=== PATIENT | male | born 1980 | race Caucasian/White ===

== ENCOUNTER 2021-02-04 14:04 | Emergency (ER) | payer OTHER, SELFPAY ==
[2021-02-04 14:10] VITALS: BP 124/76; BP 126/72; PULSE 84; PULSE 95; RESP 12; TEMP 36.8; O2SAT 95; O2SAT 98; BMI 25.0
--- NOTE | 2021-02-04 14:15 | PC.NURSE ---
Pt changed over into hospital attire w/ security present, belongings placed in decon. Pt cooperative with care. Pt very drowsy but arousable to verbal stimuli
--- NOTE | 2021-02-04 15:00 | ED_ITS ---
HPI - Overdose General Chief Complaint: Overdose Stated Complaint: HEROIN OD Time Seen by Provider: 02/04/21 14:17 Source: patient and EMS Mode of arrival: EMS Limitations: no limitations History of Present Illness HPI Narrative: Patient comes to emergency room after being found unresponsive in a car on the side of the road. No Narcan was given, patient admits to snorting 2 bags of heroin. Patient denies chest pain, no shortness of breath. Complaining of somnolence. Patient denies homicidal ideation Related Data Allergies Allergy/AdvReac Type Severity Reaction Status Date / Time cephalexin [From Keflex] Allergy Rash Verified 02/04/21 14:15 Review of Systems Review of Systems: Constitutional : No Weight loss, No Fever, No Chills, No Night Sweats, No Fatigue, No Malaise ENT/Mouth : No Hearing loss, No Ear Pain, No Nasal Congestion, No Sinus Pain, No Hoarseness, No sore throat, No Rhinorrhea, No Swallowing Difficulty Eyes: No Eye Pain, No Swelling, No Redness, No Foreign Body, No Discharge, No Vision Changes Cardiovascular : No Chest Pain, No SOB, No Dyspnea on Exertion, No Orthopnea, No Edema, No Palpitations Respiratory : No Cough, No Sputum, No Wheezing, No Smoke Exposure, No Dyspnea Gastrointestinal : No Nausea, No Vomiting, No Diarrhea, No Constipation, No abdominal Pain, No Hematochezia, No Melena Genitourinary : no irregular bleeding, No Dysuria, No Urinary Frequency, No Hematuria, No Urinary Incontinence, No Urgency, No Flank Pain, No Urinary Flow Changes, No Hesitancy Musculoskeletal : No joint pain, No Myalgias, No Joint Swelling Skin : No Skin Lesions, No rash Neuro : No Weakness, No Numbness, No Paresthesias, No Loss of Consciousness, No Dizziness, No Headache Psych : No Anxiety/Panic, No Depression, No SI/HI/AH/VH, No Social Issues, Heme/Lymph: No Bruising, No Bleeding,No Lymphadenopathy Endocrine : No Polyuria, No Polydipsia, No Temperature Intolerance PMF Past Medical History Medical History Opioid abuse Substance abuse Social History Social History Advance Directives: Yes Advance Directives Information Provided: No Advance Directives on File: No Physical Exam Vital Signs: Vital Signs: Last Vital Signs Temp 98.2 F 02/04/21 14:10 Pulse 84 02/04/21 14:10 Resp 12 02/04/21 14:10 BP 124/76 02/04/21 14:10 Pulse Ox 98 02/04/21 14:10 Body Mass Index 25.0 Appearance: Alert. Oriented X3. No acute distress. Somnolent, calm, cooperative Eyes: Pupils equal, round and reactive to light. ENT: Pharynx normal. Neck: Normal inspection. Neck supple. No lymph nodes noted. No crepitus CVS: Normal heart rate and rhythm. Pulses normal. Normal S1 and S2 Respiratory: No respiratory distress. Breath sounds normal. No Wheezing. No rales Abdomen: Soft and nontender. No rigidity. No distention. good BS x4 Skin: Skin warm and dry. Normal skin color. Normal skin turgor. Extremities: No lower extremity edema. No lower extremity edema. No Lacerations. No Rash Neuro: Oriented X 3. No motor deficit. No sensory deficit. Moving all extermities. No slurred speech. Course Course Course Narrative: Patient remains calm, cooperative, easily arousable food saturation 97-98% on room air, patient is very somnolent. When patient is more awake, he may be discharged. Patient will be provided with home Narcan. Sign- out given to Dr. Hradin Discharge Plan Discharge Clinical Impression: Substance abuse Drug overdose Qualifiers: Encounter type: initial encounter Injury intent: accidental or unintentional Qualified Code(s): T50.901A - Poisoning by unspecified drugs, medicaments and biological substances, accidental (unintentional), initial encounter Patient Disposition: Home, Self-Care Instructions: Polysubstance Abuse (ED) Additional Instructions: Please stop using drugs. Please follow-up with your primary care physician tomorrow. If you have any worsening or new symptoms, please return to the emergency room or call 911
[2021-02-04 16:32] VITALS: BP 119/67; PULSE 58; RESP 9; TEMP 36.5; O2SAT 95
[2021-02-04] MEDS: Naloxone HCl Nasal TAKE HOME 4 MG SPRAY NOSTRILALT (17:51)
[2021-02-04 18:00] VITALS: BP 136/80; PULSE 67; RESP 18; O2SAT 97
== END 2021-02-04 18:01 | disposition home or self-care (01) ==
PROVIDERS: Emergency Provider Emergency Medicine; PCP Internal Medicine
DX: T40.1X1A Poisoning by heroin, accidental (unintentional), initial encounter (principal); R40.4 Transient alteration of awareness; F11.10 Opioid abuse, uncomplicated; Y92.810 Car as the place of occurrence of the external cause
CPT/HCPCS: 99284